=== PATIENT | male | born 1955 | race African-American/Black ===

== ENCOUNTER 2020-08-10 11:03 | Emergency (ER) | payer MEDICARE | END 2020-08-10 12:43 | disposition home or self-care (01) | LOC: MADERS 11:03 | DX: M79.2 Neuralgia and neuritis, unspecified (principal); A08.4 Viral intestinal infection, unspecified; E11.9 Type 2 diabetes mellitus without complications; I10 Essential (primary) hypertension; Z79.84 Long term (current) use of oral hypoglycemic drugs; Z79.899 Other long term (current) drug therapy | CPT/HCPCS: 99283 ==

== ENCOUNTER 2022-04-05 11:06 | Outpatient (CLI) | payer MEDICARE, OTHER | END 2022-04-05 11:07 | disposition home or self-care (01) | LOC: MADLABBHPM 11:06 → MADLAB 11:07 | PROVIDERS: ATTEND Family Medicine | DX: N39.41 Urge incontinence (principal) | CPT/HCPCS: 84153 ==